=== PATIENT | female | born 2000 | race Caucasian/White ===

== ENCOUNTER 2019-01-21 15:21 | Emergency (ER) | payer BC ==
[2019-01-21] MEDS ORDERED: NORMAL SALINE 1000 ML 1,000 ML IV ONE (15:37)
--- NOTE | 2019-01-21 15:40 | ER Document Report ---
ED Medical Screen (RME) - General Chief Complaint: Abdominal Pain Stated Complaint: ABDOMINAL PAIN Time Seen by Provider: 01/21/19 15:34 Mode of Arrival: Ambulatory Information source: Patient Notes: 18-year-old female presents to ED for complaint of right lower quadrant/pelvic pain for 2 days. She was seen by the primary care doctor and sent to the emergency room to rule out appendicitis. She states she has been nauseated but has not vomited. She is sexually active so we have done a test also. Only medical history is kidney reflux as a child with stents. She states last f ood eaten was a couple hours ago. Patient is with mom. I have greeted and performed a rapid initial assessment of this patient. A comprehensive ED assessment and evaluation of the patient, analysis of test results and completion of medical decision making process will be conducted by an additional ED providers. Dictation of this chart was performed using voice recognition software; therefore, there may be some unintended grammatical errors. TRAVEL OUTSIDE OF THE [place] IN LAST 30 DAYS: No - Related Data Allergies/Adverse Reactions: No Known Allergies Allergy (Verified 01/21/19 15:24) Past Medical History - Social History Chew tobacco use (# tins/day): No Frequency of alcohol use: None Drug Abuse: None Renal/ Medical History: Denies: Hx Peritoneal Dialysis Physical Exam - Vital signs Vitals: Temp Pulse Resp BP Pulse Ox 99.0 F 89 16 121/62 99 01/21/19 15:29 01/21/19 15:29 01/21/19 15:29 01/21/19 15:29 01/21/19 15:29 Course - Vital Signs Vital signs: Temp Pulse Resp BP Pulse Ox 99.0 F 89 16 121/62 99 01/21/19 15:29 01/21/19 15:29 01/21/19 15:29 01/21/19 15:29 01/21/19 15:29
[2019-01-21 16:07] LABS: ABSOLUTE LYMPHOCYTES (AUTO) 1.6 10^3/uL (0.5-4.7); ABSOLUTE MONOCYTES (AUTO) 0.5 10^3/uL (0.1-1.4); ABSOLUTE NEUT (AUTO) 8.5 10^3/uL (1.7-8.2); BASOPHILS % (AUTO) 0.3 % (0-2); EOSINOPHILS % (AUTO) 0.2 % (0-6); HEMATOCRIT 37.1 % (36.0-47.0); HEMOGLOBIN 12.5 g/dL (12.0-15.5); LYMPHOCYTES % (AUTO) 15.3 % (13-45); MEAN CORPUSCULAR HEMOGLOBIN 30.4 pg (27.0-33.4); MEAN CORPUSCULAR HGB CONC 33.5 g/dL (32.0-36.0); MEAN CORPUSCULAR VOLUME 91 fl (80-97); MONOCYTES % (AUTO) 4.8 % (3-13); PLATELET COUNT 246 10^3/uL (150-450); RED BLOOD COUNT 4.09 10^6/uL (3.72-5.28); RED CELL DISTRIBUTION WIDTH 12.5 % (11.5-14.0); SEGMENTED NEUTROPHILS % (AUTO) 79.4 % (42-78); TOTAL CELLS COUNTED % (AUTO) 100 %; WHITE BLOOD COUNT 10.7 10^3/uL (4.0-10.5)
[2019-01-21 16:20] LABS: APPEARANCE,URINE TURBID; BILIRUBIN,URINE NEGATIVE (NEGATIVE); COLOR,URINE YELLOW; GLUCOSE, URINE NEGATIVE (NEGATIVE); KETONES,URINE 20 mg/dL (NEGATIVE); LEUKOCYTE ESTERASE,URINE LARGE (NEGATIVE); NITRITE,URINE NEGATIVE (NEGATIVE); PROTEIN,URINE 100 mg/dL (NEGATIVE); URINE SPECIFIC GRAVITY 1.017; UROBILINOGEN,URINE NEGATIVE mg/dL (<2.0)
[2019-01-21 16:26] LABS: ALANINE AMINOTRANSFERASE 12 U/L (5-35); ALBUMIN 4.5 g/dL (3.7-5.6); ALKALINE PHOSPHATASE 57 U/L (50-135); ANION GAP 12 (5-19); ASPARTATE AMINO TRANSFERASE 28 U/L (5-30); BILIRUBIN,DIRECT 0.4 mg/dL (0.0-0.4); BILIRUBIN,TOTAL 0.7 mg/dL (0.2-1.3); BLOOD UREA NITROGEN 9 mg/dL (7-20); CALCIUM 9.8 mg/dL (8.4-10.2); CARBON DIOXIDE 23 mmol/L (22-30); CHLORIDE 104 mmol/L (98-107); GLUCOSE 86 mg/dL (75-110); POTASSIUM 4.6 mmol/L (3.6-5.0); SODIUM 139.4 mmol/L (137-145); TOTAL PROTEIN 8.2 g/dL (6.3-8.2)
--- NOTE | 2019-01-21 17:10 | RADIOLOGY REPORT (SQ) ---
EXAM DESCRIPTION: U/S ABDOMEN LTD W/DOPPLER COMPLETED DATE/TIME: 01/21/2019 4:13 pm REASON FOR STUDY: rlq/pelvic pain COMPARISON: Concurrent pelvic ultrasound TECHNIQUE: Static and real time coleman scale imaging performed of the right lower quadrant with additi onal compression maneuvers. LIMITATIONS: None. FINDINGS: APPENDIX: Not visualized. OTHER: No free fluid within the visualized right lower quadrant. IMPRESSION: Appendix is not identified. Appendicitis is not excluded. TECHNICAL DOCUMENTATION: JOB ID: [id number] [employer]- All Rights Reserved Reading location - IP/workstation name: [email or web address]
--- NOTE | 2019-01-21 17:12 | RADIOLOGY REPORT (SQ) ---
EXAM DESCRIPTION: U/S NON OB PEL TV W/DOPPLER COMPLETED DATE/TIME: 01/21/2019 4:15 pm REASON FOR STUDY: rlq/pelvic COMPARISON: Concurrent right lower quadrant ultrasound TECHNIQUE: Dynamic and static grayscale images acquired of the pelvis via transvaginal approach and recorded on PACS. Additional selected color Doppler and spectral images recorded. LIMITATIONS: None. FINDINGS: UTERUS: Contour normal. No mass. ENDOMETRIAL STRIPE: No focal or generalized thickening. No masses. CERVIX: No nabothian cysts. RIGHT OVARY AND DOPPLER: Ovary not visualized. LEFT OVARY AND DOPPLER: Ovary not visualized. FREE FLUID: Trace pelvic free fluid, physiologic in a menstruating female. OTHER: No other significant finding. MEASUREMENTS: UTERUS: 6.3 x 3.0 x 3.8 cm ENDOMETRIAL STRIPE: 2 mm RIGHT OVARY: Not visualized. LEFT OVARY: Not visualized. IMPRESSION: Nonvisualization of the ovaries. Otherwise, normal pelvic ultrasound. TECHNICAL DOCUMENTATION: JOB ID: [id number] [employer]- All Rights Reserved Rev Reading location - IP/workstation name: [email or web address]
[2019-01-21] MEDS ORDERED: KETOROLAC TROMETHAMINE INJ/PF 30 MG/1 ML SDV IV ONE (17:13)
--- NOTE | 2019-01-21 17:22 | ER Document Report ---
ED General - General Chief Complaint: Abdominal Pain Stated Complaint: ABDOMINAL PAIN Time Seen by Provider: 01/21/19 15:34 Primary Care Provider: ОЛЬГА ESPINOSA MD [ACTIVE STAFF] - Follow up as needed Mode of Arrival: Ambulatory Information source: Patient TRAVEL OUTSIDE OF THE [place] IN LAST 30 DAYS: No - HPI Patient complains to provider of: Abdominal pain, back pain, nausea Onset: Other - 2 days ago Onset/Duration: Constant Quality of pain: Sharp Severity: Severe Pain Level: 4 Associated symptoms: Chills, Nausea. denies: Diarrhea, Fever, Vomiting Exacerbated by: Denies Relieved by: Denies Similar symptoms previously: No Recently seen / treated by doctor: No Notes: Patient is a 18-year-old female sent over by urgent care to be checked for possible appendicitis. Patient reports 2-day history of pain that started in her right upper quadrant and nausea which seems to be getting worse as time goes by. Patient also notes that the mid line aspect of her thoracic spine is very sore as well. She is having some frequency of urination but does not have any pain over the mid lower abdomen. Does not think she is . Does not have vaginal discharge. - Related Data Allergies/Adverse Reactions: No Known Allergies Allergy (Verified 01/21/19 15:24) Past Medical History - General Information source: Patient - Social History Smoking Status: Never Smoker Chew tobacco use (# tins/day): No Frequency of alcohol use: None Drug Abuse: None Family History: Reviewed & Not Pertinent Patient has suicidal ideation: No Patient has homicidal ideation: No Renal/ Medical History: Denies: Hx Peritoneal Dialysis Review of Systems - Review of Systems Notes: Constitutional: No fevers. No chills. EENT: No eye redness. No eye pain. No ear pain. No sore throat. Cardiovascular: No chest pain. No palpitations. Respiratory: No cough. No shortness of breath. No respiratory distress. Gastrointestinal: Positive abdominal pain. Positive nausea. Negative vomiting. Negative diarrhea Genitourinary: Atraumatic. No lesions. No pain. No discharge. Musculoskeletal: Positive mid back pain Skin: No rash or lesions. Lymphatic: No swollen lymph nodes. Neurologic: No headache. No syncope. Psychiatric: No suicidal or homicidal ideation. Physical Exam - Vital signs Vitals: Temp Pulse Resp BP Pulse Ox 99.0 F 89 16 121/62 99 01/21/19 15:29 01/21/19 15:29 01/21/19 15:29 01/21/19 15:29 01/21/19 15:29 - Notes Notes: General: Well-developed, well-nourished. In no acute distress. Non-toxic appearing. Cardiac: Well-perfused. Regular rate and rhythm. No murmurs, rubs, or gallops. Pulmonary: No respiratory distress. No cyanosis. Bilateral lung fiels are clear to auscultation. Abdominal: Point tenderness to palpation of the right upper quadrant. Otherwise abdomen is soft and nondistended. There is no right lower quadrant or suprapubic tenderness to palpation. No CVA tenderness. HEENT: Head is atraumatic. Conjunctivae not reddened. No tearing. PERRL. EOMI. Orbits atraumatic. No periorbital swelling or erythema. Oropharynx is without erythema, swelling, or exudates. Neck: Supple. No adenopathy. No meningismus. Dermatologic: Warm with good turgor. No rash. Atraumatic. Chest: Atraumatic. No chest wall tenderness to palpation. Musculoskeletal: Moves all extremities well. No range of motion deficits. no muscular or joint tenderness. No paraspinal muscle tenderness. no midline spinal tenderness or step-off. Midline thoracic tenderness to palpation Genitourinary: Examination deferred Neurologic: No gross neurologic deficits. Psychiatric: Normal mood. Course - Re-evaluation Re-evalutation: 01/21/19 17:23 Puzzling presentation. Patient does have extreme right upper quadrant tenderness. She has a strongly abnormal urinalysis but does not have any physical exam signs or symptoms pointing to that particular problem. The right lower quadrant ultrasound is complete and is inconclusive as expected. I will see what the scan of the ovaries looks like. I suspect these will also be normal. I think given the presentation and the findings that I will probably have to do a CT scan to sort all of this out. 01/21/19 19:20 CT abdomen and pelvis is negative. No sign of cholecystitis or appendicitis. Urine is abnormal. We will treat as such. Rocephin here and Keflex to go home on as well as Toradol to go home with and Reglan to go home with. - Vital Signs Vital signs: Temp Pulse Resp BP Pulse Ox 99.0 F 89 16 121/62 99 01/21/19 15:29 01/21/19 15:29 01/21/19 15:29 01/21/19 15:29 01/21/19 15:29 - Laboratory Result Diagrams: 01/21/19 15:40 01/21/19 15:40 Laboratory results interpreted by me: 01/21/19 01/21/19 15:40 15:40 WBC 10.7 H Seg Neutrophils % 79.4 H Absolute Neutrophils 8.5 H Urine Protein 100 H Urine Ketones 20 H Urine Blood MODERATE H Ur Leukocyte Esterase LARGE H Discharge - Discharge Clinical Impression: Abdominal pain Qualifiers: Abdominal location: right upper quadrant Qualified Code(s): R10.11 - Right upper quadrant pain UTI (urinary tract infection) Qualifiers: Urinary tract infection type: site unspecified Hematuria presence: without hematuria Qualified Code(s): N39.0 - Urinary tract infection, site not specified Condition: Good Disposition: HOME, SELF-CARE Instructions: Abdominal Pain ([facility]), Antinausea Medication ([facility]), Cephalexin ([facility]), Toradol Injection ([facility]), Urinary Tract Infection ([facility]) Additional Instructions: Use all medications as directed. Use them until they are complete. Return to ER in 2 days if not significant better. Come sooner if worse. Do not have to start the antibiotics until tomorrow. Prescriptions: Ketorolac Tromethamine [Toradol 10 mg Tablet] 10 mg PO Q6HP PRN #12 tablet PRN Reason: Metoclopramide HCl [Reglan] 5 mg PO Q6HP PRN #12 tablet PRN Reason: Cephalexin Monohydrate [Keflex 500 mg Capsule] 500 mg PO Q6H 7 Days #28 capsule Referrals: ОЛЬГА ESPINOSA MD [ACTIVE STAFF] - Follow up as needed
--- NOTE | 2019-01-21 18:48 | RADIOLOGY REPORT (SQ) ---
EXAM DESCRIPTION: CT ABD/PELVIS WITH IV ONLY COMPLETED DATE/TIME: 01/21/2019 6:27 pm REASON FOR STUDY: ruq pain, back pain, nausea, infected urine COMPARISON: Same day TECHNIQUE: CT scan of the abdomen and pelvis performed using helical scanning technique with dynamic intravenous contrast injection. No oral contrast. Images reviewed with lung, soft tissue, and bone windows. Reconstructed coronal and sagittal MPR images reviewed. Delayed images for evaluation of the urinary system also acquired. All images stored on PACS. All CT scanners at this facility use dose modulation, iterative reconstruction, and/or weight based d osing when appropriate to reduce radiation dose to as low as reasonably achievable (ALARA). [facility]: Dose Right [facility]: CareDose [facility]: Dose Right [facility]: Teradose 4D [facility]: ControlScan CONTRAST TYPE AND DOSE: contrast/concentration: Isovue 350.00 mg/ml; Total Contrast Delivered: 49.0 ml; Total Saline Delivered: 42.0 ml 49 mL IV of Isovue 350- low osmolar. RENAL FUNCTION: BUN 9 creatinine 0.66 RADIATION DOSE: CT Rad equipment meets quality standard of care and radiation dose reduction techniq ues were employed. CTDIvol: 4.8 mGy. DLP: 513 mGy-cm.. LIMITATIONS: None. FINDINGS: LOWER CHEST: No significant findings. No nodules or infiltrates. LIVER: Normal size. No masses. No dilated ducts. SPLEEN: Normal size. No focal lesions. PANCREAS: No masses. No significant calcifications. No adjacent inflammation or peripancreatic fluid collections. Pancreatic duct not dilated. GALLBLADDER: No identified stones by CT criteria. No inflammatory changes to suggest cholecystitis. ADRENAL GLANDS: No significant masses or asymmetry. RIGHT KIDNEY AND URETER: No solid masses. No significant calcifications. No hydronephrosis or hyd roureter. LEFT KIDNEY AND URETER: No solid masses. No significant calcifications. No hydronephrosis or hydr oureter. AORTA AND VESSELS: No aneurysm. No dissection. Renal arteries, SMA, celiac without stenosis. RETROPERITONEUM: No retroperitoneal adenopathy, hemorrhage or masses. BOWEL AND PERITONEAL CAVITY: No masses or inflammatory changes. No free fluid or peritoneal masses. APPENDIX: Partially visualized. Visualized portions appear nondilated. No periappendiceal fat stran ding or periappendiceal free fluid. PELVIS: No mass. Trace pelvic free fluid, likely physiologic in a menstruating female. Urinary blad jenaro is collapsed. ABDOMINAL WALL: No masses. No hernias. BONES: No significant or acute findings. OTHER: No other significant finding. IMPRESSION: No acute findings within the abdomen or pelvis. Partial visualization of the appendix w hich appears normal. No adjacent periappendiceal inflammatory changes. TECHNICAL DOCUMENTATION: JOB ID: [id number] Quality ID # [id number]: Final reports with documentation of one or more dose reduction techniques (e.g., Au tomated exposure control, adjustment of the mA and/or kV according to patient size, use of iterative reconstruction technique) 2010 [employer]- All Rights Reserved Reading location - IP/workstation name: [email or web address]
[2019-01-21] MEDS ORDERED: CEFTRIAXONE 1 GM/D5W RTU 1 GM/50 ML RTUPB IV ONE (19:18)
[2019-01-21 20:17] VITALS: BP 122/68
== END 2019-01-21 20:21 | disposition home or self-care (01) ==
LOC: ER 15:21
DX: N39.0 Urinary tract infection, site not specified (principal); R10.11 Right upper quadrant pain; R10.811 Right upper quadrant abdominal tenderness; R11.0 Nausea; M54.9 Dorsalgia, unspecified; R68.83 Chills (without fever)
CPT/HCPCS: 99284; 36415; 84703; 85025; 80053; 81001; 76705; 76830; 93976; 74177; J1885; J7030; J0696